=== PATIENT | female | born 1960 | race Caucasian/White ===

== ENCOUNTER 2018-02-05 13:27 | Inpatient (IN) | payer BC ==
[~2018-02-05] VITALS: Ht 162.6 cm; Wt 71.7 kg
[2018-02-05 13:53] VITALS: BP 141/94
--- NOTE | 2018-02-05 13:57 | NUR ---
ADMISSION: PATIENT HERE FOR MEDICAL CLEARANCE FOR BEHAVIORAL HEALTH. PATIENT TOLD THIS NURSE DURING TRIAGE THAT SHE DID HAVE AN ACTIVE SUICIDE PLAN YESTERDAY, BUT THAT SHE REALLY FELT BETTER TODAY. AT BEDSIDE AND AGREED THAT SHE WAS BETTER TODAY. PATIENT STATES SHE HAS A LIFE LONG HISTORY OF DEPRESSION AND IT IS USUALLY CONTROLLED, BUT OVER THE LAST YEAR IT HAS BACAME INCREASINLY WORSE AND THEN THE LAST 2-3 DAYS UNCONTROLLABLE.
--- NOTE | 2018-02-05 14:06 | NUR ---
[facility]: SPOKE WITH NURSE ABOUT PATIENTS ARRIVAL, SHE STATED "SHE IS ACCEPTED, PENDING MEDICAL CLEARANCE, HER DOCTOR HAS ALREADY TALKED TO DR. MURPHY".
--- NOTE | 2018-02-05 14:14 | ER.PDOC ---
General Chief Complaint: Medical Clearance Stated Complaint: MEDICAL CLEARANCE Time seen by MD: 13:35 Source: patient, family Exam Limitations: no limitations History of Present Illness Initial Comments pt has hx of fibromyalgia, htn, and being treated for depression x1yr by pcp and counselor who on awoke w/ suicidal ideation and about a month ago, cut herself in a suicide attempt but didn't seek medical attention. Pt states she would cut her radial or bracheal artery, doesn't get much sleep, feels depressed and has no family or prior attempts other than above hx of suicide attempts. Pt denies illness or hallucinations and has had anxiety w/ increased HR before. Timing/Duration: constant, other Intent: Suicide Severity: moderate Associated Symptoms: Depressed, Suicidal Thoughts Mechanism: Incision Substance Ingested: none Rescue Factor: told Prior symptoms/Treatment: Similar symptoms previous, Recenly Seen, Treated by Doctor Allergies: Coded Allergies: Sulfa (Sulfonamide Antibiotics) (Verified Allergy, Severe, Swelling, ) erythromycin base (Verified Allergy, Severe, Swelling, 02/05/18) morphine (Verified Allergy, Severe, Swelling, 02/05/18) Past Medical History Medical History: high cholesterol, hypertension, other (fibromyalgia, ) Surgical History: appendectomy, cholecystectomy LMP (females 10-50): postmenopause Social History Smoking: greater than 1 pack/day Alcohol Use: heavy (5-6 beers per day) Drug Use: none Reviewed Nursing Reviewed: Vital Signs, Abn. Noted, Nursing Assessment Review of Systems Constitutional: no symptoms reported; denies fever, denies malaise, denies weakness EENTM: no symptoms reported Respiratory: no symptoms reported; denies cough, denies orthopnea, denies shortness of breath, denies stridor Cardiovascular: no symptoms reported; denies chest pain, denies edema, denies syncope Gastrointestinal: no symptoms reported; denies abdominal pain, denies diarrhea , denies nausea, denies vomiting Genitourinary: no symptoms reported; denies dysuria, denies frequency, denies hematuria Musculoskeletal: no symptoms reported Skin: no symptoms reported Psychiatric/Neurological: see HPI; denies headache, denies paresthesia, denies weakness All Other Systems: Reviewed and Negative Physical Exam General Appearance: No acute distress, Alert EENT: No nystagmus, PERRLA, EOM's intact, NML ENT inspection, Pharynx nml, NML gag reflex Neck: Non-Tender, Full Range of Motion, Supple, Normal Inspection Respiratory: chest non-tender, lungs clear, normal breath sounds, no respiratory distress, no accessory muscle use Cardiovascular: Normal Peripheral Pulses, Regular Rate, Rhythm, No Edema, No Gallop, No JVD, No Murmur Gastrointestinal: Normal Bowel Sounds, No Organomegaly, No Pulsatile Mass, Non Tender, Soft Extremities: Non-Tender, Normal Range of Motion, No Evidence of Trauma, No Edema Neurological/Psychiatric: Alert, Calm, associate media planner II-XII NML as Tested, Oriented x 3, Depressed Affect, Flat Appearance/Memory/Insight: Appropriate Appearance, Appropriate Insight, Neat, No Memory Impairment Behavior/Eye Contact/Speech: Cooperative, Good Eye Contact, Normal Speech Thoughts/Hallucinations: Normal Thought Pattern, No Apparent Hallucination Skin: Normal Color, Warm/Dry Results/Orders Results/Orders Laboratory Tests Test 02/05/18 14:19 02/05/18 14:20 Urine Collection Type CCMS Urine Color YELLOW (YELLOW) Urine Appearance CLOUDY (CLEAR) Urine Bilirubin NEGATIVE MG/DL (NEGATIVE) Urine Ketones NEGATIVE (NEGATIVE) Urine Specific [place] 1.010 (1.005-1.035) Urine pH 5 (5.0-6.0) Urine Protein NEGATIVE (NEGATIVE) Urine Urobilinogen NORMAL (NEGATIVE) Urine Nitrate NEGATIVE (NEGATIVE) Urine Leukocyte Esterase NEGATIVE (NEGATIVE) Urine Blood 10 TR (NEGATIVE) Urine RBC 0-2 RBC/HPF (NONE SEEN) Urine WBC 5-10 WBC/HPF (0-2) Urine Squamous Epithelial Cells FEW #/HPF (FEW) Urine Bacteria MODERATE (NONE SEEN) Urine Other FEW CLUE CELLS #/HPF Urine Glucose NORMAL (NEGATIVE) Urine Opiates, Qualitative NEGATIVE ng/mL (CUT-OFF:300) Urine Methadone, Qualitative NEGATIVE ng/mL (CUT-OFF:300) Urine Amphetamine Qualitative NEGATIVE ng/mL (CUTOFF:1000) Urine Barbiturates, Qualitative NEGATIVE ng/mL (CUT-OFF:200) Urine Phencyclidine Screen NEGATIVE ng/mL (CUT-OFF:25) Urine MDMA (Ecstasy), Qualitative POSITIVE ng/mL (CUT-OFF:300) Urine Benzodiazepines Screen NEGATIVE ng/mL (CUT-OFF:200) Urine Cocaine Qualitative NEGATIVE ng/mL (CUT-OFF:300) Ur Tetrahydrocannabinol (THC) Scrn NEGATIVE ng/mL (CUT-OFF:50) White Blood Count 7.5 10^3/uL (4.5-11.0) Red Blood Count 4.56 10^6/uL (4.00-5.20) Hemoglobin 15.3 g/dL (12.0-15.0) Hematocrit 44.6 % (36.0-46.0) Mean Corpuscular Volume 97.8 fL (78-100) Mean Corpuscular Hemoglobin 33.6 pg (26-34) Mean Corpuscular Hemoglobin Concent 34.3 g/dL (33-37) Red Cell Distribution Width 13.1 % (11.5-14.5) Platelet Count 245 10^3/uL (150-400) Mean Platelet Volume 10.1 fL (7.8-11.0) Neutrophils (%) (Auto) 46.0 % (41.0-85.0) Lymphocytes (%) (Auto) 34.6 % (24.0-44.0) Monocytes (%) (Auto) 10.3 % (5.0-12.0) Neutrophils # (Auto) 3.4 10^3/uL (1.8-7.7) Lymphocytes # (Auto) 2.6 10^3/uL (1.0-4.8) Monocytes # (Auto) 0.8 10^3/uL (0.3-0.8) Absolute Immature Granulocyte (auto 0.02 10^3 u/L (0-2) Eosinophils % 7.7 % (0.0-5.0) Basophils % 1.1 % (0.0-0.2) Basophils # 0.1 10^3/uL (0.0-0.1) Eosinophil Count 0.6 10^3/uL (0.0-0.2) Prothrombin Time 10.6 SEC (9.8-11.9) Prothrombin Time INR (Non-Therap) 1.1 Activated Partial Thromboplast Time 25.5 SEC (24.67-30.72) Sodium Level 142 mmol/L (132-145) Potassium Level 3.5 mmol/L (3.6-5.2) Chloride Level 108.0 mmol/L (96-109) Carbon Dioxide Level 19.0 mmol/L (20.0-32) Anion Gap 18.5 Blood Urea Nitrogen 6 mg/dL (7-18) Creatinine 0.76 mg/dL (0.59-1.40) Estimated GFR () 95.6 (>/=60) BUN/Creatinine Ratio 7.0 Glucose Level 144 mg/dL (70-110) Calcium Level 8.8 mg/dL (8.4-10.5) Total Bilirubin 0.7 mg/dL (0.2-1.0) Aspartate Amino Transf (AST/SGOT) 18 U/L (0-35) Alanine Aminotransferase (ALT/SGPT) 25 U/L (12-78) Alkaline Phosphatase 68 U/L (50-136) Total Protein 7.5 g/dL (6.4-8.2) Albumin 4.0 g/dL (3.4-5.0) Globulin 3.5 Thyroid Stimulating Hormone (TSH) 1.646 mIU/mL (0.358-3.740) Percent Immature Gran (Cell Imm) 0.30 % (0.00-0.50) Progress Progress pt wants [facility] admit, will screen for medical abn and admit Some labs pending on admit. Accepted by DR. Aguilar Consult/PCP Time Consult/PCP Called: 15:00 Consult/PCP: maximo Reason/Comments: cade [facility]ireenix Departure Time of Disposition: 15:03 Disposition: 09 ADMITTED INPATIENT Impression: Primary Impression: Suicidal ideation Additional Impression: Depression (emotion) Condition: Stable Referrals: KECIA MILLAN (PCP) PRIMARY CARE PROVIDER Duration or Time Spent with Pa: 30 JODEE REYNOSO MD Feb 05, 2018 14:14
[2018-02-05 14:23] LABS: BILIRUBIN,URINE NEGATIVE (NEGATIVE); UROBILINOGEN,URINE NORMAL (NEGATIVE)
[2018-02-05 14:26] LABS: BASOPHIL # 0.1 10^3/uL (0.0-0.1); BASOPHIL % 1.1 % (0.0-0.2); EOSINOPHIL # 0.6 10^3/uL (0.0-0.2); EOSINOPHIL % 7.7 % (0.0-5.0); HEMOGLOBIN 15.3 g/dL (12.0-15.0); LYMPHOCYTES # 2.6 10^3/uL (1.0-4.8); LYMPHOCYTES % 34.6 % (24.0-44.0); MEAN CELL HGB 33.6 pg (26-34); MEAN CELL HGB CONCENTRATION 34.3 g/dL (33-37); MEAN CORP VOLUME 97.8 fL (78-100); MEAN PLATELET VOLUME 10.1 fL (7.8-11.0); MONOCYTES # 0.8 10^3/uL (0.3-0.8); MONOCYTES % 10.3 % (5.0-12.0); NEUTROPHIL # 3.4 10^3/uL (1.8-7.7); RED CELL DISTRIBUTION WIDTH 13.1 % (11.5-14.5); WHITE BLOOD CELL 7.5 10^3/uL (4.5-11.0)
[2018-02-05 14:30] LABS: UA COLOR YELLOW (YELLOW)
[2018-02-05 14:31] LABS: APPEARANCE,URINE CLOUDY (CLEAR)
--- NOTE | 2018-02-05 14:34 | PCM.EKG ---
[facility] Test Date: 2018-02-05 Test Time: 14:36:59 Pat Name: EZEQUIEL MUNGUIA Department: Room: Gender: F Supervisor Files: : [id number] Requested By: JODEE REYNOSO Order Number: [id number] Reading MD: Jodee Reynoso Measurements Intervals [place] Rate: 106 P: 56 VA: 148 QRS: 21 QRSD: 82 T: 57 QT: 350 QTc: 464 Interpretive Statements Sinus tachycardia Otherwise normal ECG No previous ECG available for comparison Electronically Signed On 02-05-2018 18:48:30 CDT by Jodee Reynoso Please click the below link to view image of tracing.
[2018-02-05 14:58] LABS: CALCIUM 8.8 mg/dL (8.4-10.5)
[2018-02-05 16:00] VITALS: BP 133/93
--- NOTE | 2018-02-05 16:00 | NUR ---
ARRIVAL: PT. ARRIVED ON UNIT VIA WHEELCHAIR ACCOMPANIED BY AND STAFF. PT. IS ALERT AND ORIENTED X 3.. PT. IS TEARFUL. PT. DX. IS MAJOR DEPRESSION SEVERE WITH SUICIDAL IDEATION. PT.DISCHARGE PLAN IS TO DISCHARGE, HOME.DR. ATKINS AND DR. CONNOR NOTIFIED OF PT ARRIVAL ON UNIT. PT. IS VOLUNTARY. Addendum: 02/05/18 at 1951 by Estefanía Sheikh RN RN PT. DENIES ANY S/I AT THIS TIME
[2018-02-05] MEDS ORDERED: ATIVAN ONE (16:10)
[2018-02-05] MEDS ORDERED: ATIVAN PO STA (16:12)
[2018-02-05] MEDS ORDERED: BUPR150T13 PO (16:57)
[2018-02-05] MEDS ORDERED: DULO60CA7 PO (16:57)
[2018-02-05] MEDS ORDERED: CETI10TA18 PO (16:57)
[2018-02-05] MEDS ORDERED: LOSA50TA6 PO (16:57)
[2018-02-05] MEDS ORDERED: ASPI-484 PO (16:57)
[2018-02-05] MEDS ORDERED: OMEG1CAP2 PO (16:57)
[2018-02-05] MEDS ORDERED: CHOL500016 PO (16:57)
[2018-02-05] MEDS ORDERED: BLAC540C4 PO (16:57)
[2018-02-05] MEDS ORDERED: CARV6.25 PO (16:57)
[2018-02-05] MEDS ORDERED: MILK175C2 PO (16:57)
[2018-02-05] MEDS ORDERED: DEXL60CA2 PO (16:57)
[2018-02-05] MEDS ORDERED: TRAM50TA PO (16:57)
--- NOTE | 2018-02-05 17:00 | NUR ---
VSEE: PT. SEEN BY DR. MILLY PHELAN. PT. IS VOLUNTARY. PT IS TEARFUL AND RATES HER DEPRESSION A 10.
[2018-02-05] MEDS ORDERED: KLONOPIN PO PRN (18:30)
[2018-02-05 19:20] VITALS: BP 102/61
[2018-02-05] MEDS: KLONOPIN PO SCH (20:33)
[2018-02-05] MEDS ORDERED: ATIVAN PO SCH (21:00)
--- NOTE | 2018-02-06 06:09 | NUR ---
PIRP P-ALTERATION IN MOOD AND DTS I-PROVIDE MEDICATION ORDERED,Q 15 MIN. MONITORING,PROVIDE 1:1 INTERVENTION ALLOWING PT. TO EXPRESS THOUGHTS AND FEELINGS. R- PT. DECLINED TO ATTEND AND STAYED IN HER BED. DECLINED SNACKS. RATED DEPRESSION AND ANXIETY 10. DENIES SI TONIGHT BUT STATES SHE HAS HAD SI BEFORE COMING HERE. ORIENTED TIMES THREE. TOOK MEDICATION ORDERED. PT. HAS RESTED IN BED WITH EYES CLOSED FOR 7.75 HOURS. P- WILL CONTINUE WITH CURRENT TX. PLAN.
[2018-02-06 08:00] VITALS: BP 153/95
--- NOTE | 2018-02-06 08:00 | NUR ---
BEHAVIOR: PT. REFUSES TO GET UP FOR BREAKFAST. PT. DOES NOT WANT TO GO TO DAY ROOM. TOLD PT. WOULD BRING HER BREAKFAST TO HER ROOM AND SHE COULD GET UP FOR LUNCH. PT. AGREED. PT. DENIES ANY SUICIDAL IDEATION AT THIS TIME. PT. IS CALM AND COOPERATIVE.
--- NOTE | 2018-02-06 08:09 | DIREP ---
PROCEDURE:CHEST 1 VIEW COMPARISON:[facility], CR, XRAY CHEST SINGLE VW, 04/14/2017, 09:55 AM. INDICATIONS:new admit FINDINGS: LUNGS/PLEURA:No significant pulmonary parenchymal abnormalities. No effusions. Azygos fissure in the right apex. The lungs are clear. No pneumonia, heart failure or effusions are seen. The previously noted nodule in the right costophrenic angle is not visualized on the current examination. VASCULATURE:Normal. Unremarkable pulmonary vasculature. CARDIAC:Normal. No cardiac silhouette abnormality or cardiomegaly. MEDIASTINUM:Normal. No visible mass or adenopathy. BONES:Normal. No fracture or visible bony lesion. OTHER:Negative. CONCLUSION:No change, no active disease. Dictated by: Jett Martinez MD on 02/06/2018 at 08:06 AM
[2018-02-06 08:22] VITALS: BP 153/95
[2018-02-06] MEDS: KLONOPIN PO SCH ×2 (08:31→22:06)
[2018-02-06] MEDS: EFFEXOR XR PO SCH (08:31)
[2018-02-06] MEDS: CYMBALTA PO SCH (08:31)
--- NOTE | 2018-02-06 10:00 | NUR ---
BEHAVIOR: PT. HAS BEEN SLEEPING ALL MORNING. PT. HAS TAKEN HER MEDICATION ORDERED. PT. REFUSES TO COME TO GROUP OR SNACK. PT. DENIES ANY SUICIDAL IDEATION. PT. IS CALM.
--- NOTE | 2018-02-06 10:30 | NUR ---
DR. CONNOR: T/C TO DR. CONNOR TO LET HIM KNOW THAT PT. IS C/O PAIN AND NEEDS MEDS ORDERED.. NO ANSWER AND MESSAGE LEFT.
--- NOTE | 2018-02-06 12:00 | NUR ---
BEHAVIOR: PT. CAME TO THE DAY ROOM FOR LUNCH. SHE DRANK HER TEA AND WATCHED SOME TV THEN WENT BACK TO HER ROOM. PT. STATED THAT SHE WAS NOT HUNGARY. PT. STATED SHE WAS HERE FOR MED ADJUSTMENT AND NOTHING ELSE. PT. PLANS TO BE OUT OF HERE BEFORE THURSDAY. PT. SITTING UP IN BED READING A MAGAZINE. PT. DENIES ANY SUICIDAL IDEATION. SHE STATES THAT SHE HAS DEPRESSION AND ANXIETY. SHE RATES THEM BOTH A 10.
--- NOTE | 2018-02-06 12:00 | NUR ---
HOSPITALIST: T/C TO MEDICAL FLOOR FOR HOSPITALIST. TALKED TO ALIVIA AND SHE SAID DR. CARSON WAS TURRET LATHE SET UP OPERATOR AND THAT HE WAS MAKING ROUNDS. SHE SAID SHE HAD THE PT. ON HIS LIST TO COME AND SEE.
--- NOTE | 2018-02-06 13:19 | NUR ---
T/C: T/C TO DR. ATKINS. MESSAGE LEFT TO CALL UNIT.
--- NOTE | 2018-02-06 13:51 | NUR ---
DR. ATKINS: DR. ATKINS CALLED AND REPORT WAS GIVEN TO HIM ABOUT PT. NOT EATING, NOT COMING TO GROUPS AND THAT SHE WAS GOING TO BE GONE BEFORE THURSDAY. NO NEW ORDERS RECEIVED CONTINUE TO MONITOR THE PT. Q 15 MINUTE CHECK DONE..
--- NOTE | 2018-02-06 14:40 | NUR ---
PIRP: P: DTS, ALTERATION IN MOOD I: MONITOR PT. Q 15 MINUTES, PROVIDE SAFE AND SUPPORTIVE ENVIRONMENT, OBSERVE AND REPORT CHANGES IN UNUSUAL BEHAVIOR, ENCOURAGE DAILY GROUP ATTENDANCE AND PARTICIPATION, PROVIDE MEDICATION ORDERED. PROVIDE 1:1 ALLOWING PT. TO EXPRESS THOUGHTS AND FEELINGS, MONITOR AND RECORD EACH MEAL. R: PT. IS CHECKED ON Q 15 MINUTES, PT HAS A SAFE AND SUPPORTIVE ENVIRONMENT. PT. HAS BEEN SLEEPING A LOT. PT. HAS 1:1 AND HAS EXPRESSED FEELING THAT SHE IS ONLY HERE FOR MED ADJUSTMENT AND NOTHING ELSE. SHE ATE 30% OF BREAKFAST AND 0% OF LUNCH. PT. REFUSES TO COME TO DAY ROOM AND REFUSES TO COME TO GROUP. PT. DENIES AND SUICIDAL IDEATION. RATES HER DEPRESSION A 10 AND ANXIETY A 10. P: CONTINUE CURRENT TX PLAN
--- NOTE | 2018-02-06 15:10 | NUR ---
HOSPITALIST: CALLED MEDICAL AND DR. CARSON IS STILL SEEING PTS. ALIVIA SAID SHE WOULD REMIND HIM TO COME DOWN HERE WHEN HE WAS FINISHED.
[2018-02-06 15:15] VITALS: BP 149/97
--- NOTE | 2018-02-06 15:24 | NUR ---
MMSE: NO IMPAIRMENT Addendum: 02/06/18 at 1525 by Reanna Workman LMSW SW Amended: Links added.
--- NOTE | 2018-02-06 15:28 | NUR ---
GMAS: SEVERE DEPRESSION Addendum: 02/06/18 at 1528 by Reanna Workman LMSW SW Amended: Links added.
--- NOTE | 2018-02-06 16:05 | NUR ---
HOSPITALIST: T/C TO MEDICAL TO CHECK IF DR. CARSON WAS STILL THERE. ALIVIA STATED HE LEFT 10 [address] ON HIS WAY TO THE BEHAVIORAL UNIT.
--- NOTE | 2018-02-06 16:06 | NUR ---
PT PRESENTED TO THE ER FOR MEDICAL CLEARANCE DUE TO SUICIDAL THOUGHTS AND SEVERE DEPRESSION. PT CURRENTLY LIVES IN [place] WITH SPOUSE AND PLANS TO RETURN HOME UPON DISCHARGE. PT CURRENTLY Addendum: 02/06/18 at 1613 by DEEPTHI Marina Amended: Links added. Addendum: 02/06/18 at 1613 by DEEPTHI Marina PLEASE SEE ABOVE NOTE.
--- NOTE | 2018-02-06 16:10 | NUR ---
PT PRESENTED TO THE ER WITH SPOUSE DUE TO SUICIDAL IDEATIONS AND SEVERE DEPRESSION. PT VOLUNTARILY ADMITTED SELF INTO THE [facility] FOR PSYCHIATRIC NEEDS. PT PLANS TO RETURN HOME WITH SPOUSE IN [place] UPON DISCHARGE. PT CURRENTLY SEE'S A THERAPIST IN [place]. Addendum: 02/06/18 at 1613 by DEEPTHI Marina Amended: Links added.
--- NOTE | 2018-02-06 16:15 | NUR ---
DR. CARSON: T/C TO ABOUT NEW PT. INFORMED HIM THAT MEDS NEEDED TO BE ORDERED. DR. CARSON WANTED TO KNOW WHAT SHE WAS ON AND GAVE AN ORDER TO CONTINUE THOSE MEDS AND HE WOULD BE UP LATER TO SEE THE PT..
[2018-02-06] MEDS ORDERED: ZYRTEC PO SCH (16:30)
[2018-02-06] MEDS ORDERED: VITAMIN D PO SCH (16:30)
[2018-02-06] MEDS ORDERED: VITAMIN D ONE (16:31)
[2018-02-06] MEDS: COREG PO SCH ×2 (16:35→22:05)
[2018-02-06] MEDS: ULTRAM PO SCH ×2 (16:36→22:13)
[2018-02-06 20:03] VITALS: BP 139/85
--- NOTE | 2018-02-06 21:41 | PSYCH ---
DATE OF SERVICE: 02/05/2018 TIME: 03:00-04:00 a.m. CHIEF COMPLAINT: Severe depression and panic with suicidal intent with a plan. HISTORY OF PRESENT ILLNESS: This patient is a female admitted after comprehensive medical clearance to the Behavioral Health Care Unit. The patient lives in [place] and was under the care of Dr. Pompa, who contacted the disposition about the patient and the severity of her depression. The patient reports severely depressed mood, ongoing for one to two years, increasing greatly within the last 6 months and currently extremely severe for a week or two. On a scale of 1-10 with 10 being the worst, depression, and manageable. She reports ____ as 10. No psychiatric hospitalization previously. The patient's mood depressed, disturbed sleep, appetite, energy, concentration, feelings of hopelessness, helplessness, worthlessness. Positive anhedonia, positive suicidal ideation with intent via cutting her wrists. She has been on medications including Celexa, Cymbalta, Wellbutrin, all of which have been ineffective. She has been in individual therapy for months, which has also been ineffective. The patient representing a risk or danger to herself and therefore admitted to the hospital. She is voluntary at this point and we will encourage her to stay in the hospital while she was having any suicidal thoughts. CURRENT MEDICATIONS: Include Cymbalta 60 mg a day and Wellbutrin 150 mg twice a day for depression. Both of these medications have been in place for months with no response. The patient also has anxiety or panic symptoms, severe interfering with ability to function. PAST PSYCHIATRIC HISTORY: Positive for major depressive disorder and panic disorder. PAST MEDICAL HISTORY: 1. Appendectomy. 2. Obstructive sleep apnea. 3. Hypertension. 4. Gastroesophageal reflux disease. 5. Hyperlipidemia. 6. Fibromyalgia. CURRENT MEDICATIONS: Include Wellbutrin, Cymbalta, losartan, beta von and occasional tramadol. ALLERGIES: INCLUDE MORPHINE, ERYTHROMYCIN, AND SULFA. FAMILY PSYCHIATRIC HISTORY: Positive for bipolar disorder in a daughter currently being treated with valproic acid. SOCIAL HISTORY: The patient lives in [place], 17 years. 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 She is educated with a college education. Tobacco, one half pack per day. Beer, which is being used, has been increasing in the evening and she has been concerned about her consumption of alcohol, although she has never had a DUI public intoxication withdrawal or any other symptoms associated with alcohol use disorder. OBJECTIVE: VITAL SIGNS: Blood pressure 133/93, pulse 105, respirations 18, oxygen saturation 98%, temperature 98.2. REVIEW OF SYSTEMS: HEENT: Normal. RESPIRATORY: No shortness of breath, coughing, or wheezing. CARDIOVASCULAR: No chest pain or palpitations. GASTROINTESTINAL: No nausea, vomiting, diarrhea or constipation. GENITOURINARY: No difficulty with urination. EXTREMITIES: No swelling or edema. MUSCULOSKELETAL: No muscle pain currently. NEUROLOGIC: Normal. ENDOCRINE: Normal. MENTAL STATUS EXAMINATION: Reveals a profoundly depressed, female with decreased psychomotor activity, tearful throughout. Concentration and memory intact. Speech and language are normal. Orientation is full. Intelligence is average. Mood assessed as depressed. Affect constricted. Insight and judgment fair. Thought logical and goal directed. Positive suicidal ideation. DIAGNOSES: AXIS I: 1: Major depressive disorder, recurrent. 2. Panic disorder. AXIS II: Deferred. AXIS III: Refer to past medical history. TREATMENT PLAN: 1. This patient will be admitted to the Behavioral Health Care Unit and being observed closely. Again, she is voluntary in the hospital and she is being evaluated consistently or repeatedly for any suicidal thoughts. 2. Her medications will be changed. Cymbalta will be decreased and discontinued. Wellbutrin will be discontinued. She will be placed on Effexor XR 75 mg in the mornings and Klonopin 0.5 mg twice a day. 3. She will participate in all groups, therapies and activities. 4. She will be discharged back to home with outpatient care through the [facility] psychiatric clinic with Dr. Niño as soon as her suicidal thoughts resolved completely. Jhonatan Niño MD DR: HELENA/francisco JOB# [id number]
[2018-02-06] MEDS: COZAAR PO SCH (22:06)
[2018-02-06] MEDS: LOVAZA PO SCH (22:06)
--- NOTE | 2018-02-07 05:59 | NUR ---
pirp p- alteration in mood and dts i- provide medication as ordered,provide safe and supportive environment and q 15 min. monitoring.provide 1:1 intervention allowing pt. to express thoughts and feelings. R- PT. DECLINED TO ATTEND GROUP BUT DRANK COFFEE FOR SNACKS. PT. WITHDRAWN TO HER ROOM. PT. LAID IN BED AND LOOKED AT BOOKS. PT. STATED SHE TALKED WITH QUILL LAYER TODAY AND SHE FEELS LESS DEPRESSED SINCE TALKING WITH HER. TOOK MEDICATION ORDERED. PT. RATED DEPRESSION 8 AND ANXIETY 5. ORIENTED TIMES THREE. QUIET BUT PLEASANT. P- WILL CONTINUE WITH CURRENT TX. PLAN.
[2018-02-07 08:10] VITALS: BP 114/78
[2018-02-07] MEDS: ASPIRIN EC PO SCH (08:18)
[2018-02-07] MEDS: CYMBALTA PO SCH (08:19)
[2018-02-07] MEDS: COREG PO SCH ×2 (08:19→20:33)
[2018-02-07] MEDS: ULTRAM PO SCH ×2 (08:20→20:34)
[2018-02-07] MEDS: EFFEXOR XR PO SCH (08:20)
[2018-02-07] MEDS: KLONOPIN PO SCH ×2 (08:21→20:34)
[2018-02-07] MEDS: CLARITIN PO SCH (08:24)
[2018-02-07] MEDS: PROTONIX PO SCH (08:40)
[2018-02-07] MEDS: VITAMIN D PO SCH (08:41)
[2018-02-07] MEDS ORDERED: COZAAR PO SCH (09:00)
[2018-02-07] MEDS ORDERED: COZAAR PO ONE (09:00)
--- NOTE | 2018-02-07 12:55 | NUR ---
Urticaria Dr. Niño notified of pt reporting "itchiness all over." No rash, no swelling noted to entire body surface. Pt states, "It might just be one of those things that when you scratch you can't stop." Received orders for PRN benadryl, see EMAR.
[2018-02-07] MEDS ORDERED: BENADRYL PO PRN (13:00)
[2018-02-07] MEDS ORDERED: BENADRYL PO ONE (13:03)
--- NOTE | 2018-02-07 16:31 | NUR ---
PIRP P: Alteration in mood I: q15 min monitoring, monitor for changes in usual behavior, assess reasons for depression and anxiety, teach coping skills r/t depression, reinforce unit rules, teach importance of participation in own self-care, provide 1:1 to encourage expression of feelings, provide safe and supportive environment, provide task-oriented activities, encourage social interaction R: Pt has had pleasant affect throughout shift, withdraws to room. Comes out for meal times, but has not participated in group activities. Rates depression @ 8 on 0-10 scale, denies anxiety and suicidal ideation. States, "Today is the first day I haven't woken up crying. I do feel better, but I'm still deja sleepy and groggy, I guess because of the medicine." Pt did report new onset of urticaria, which has been relieved with admin of PRN benadryl. Pt cooperative with ADLs, stated, "I even put on some blush and lipstick. I'm making some progress." P: Pt reports she is going to "take one step at a time."
--- NOTE | 2018-02-07 16:58 | CNH ---
DATE OF CONSULTATION: 02/06/2018 REASON FOR CONSULTATION: Concurrent medical. The patient is being admitted to Psychiatry in the [facility]. CONSULTATION NOTE IS FOLLOWS: The patient is a 57-year-old female who is admitted to the [facility] voluntarily for worsening depression and suicide ideations. She voices no complaints to me other than she wanted to make sure that she was on her home medications for her blood pressure and heart rate. She denies any chest pain to me. No shortness of breath at this point. No abdominal pains. PAST MEDICAL HISTORY: Significant for tachycardia, hypertension, depression, fibromyalgia. PAST SURGICAL HISTORY: Includes cholecystectomy, appendectomy and she has had RIVET TESTER surgery with her ovaries and fallopian tubes. SOCIAL HISTORY: She does have a history of smoking. She does admit to alcohol use, no drug use. FAMILY HISTORY: Asked and noncontributory for this admission. ALLERGIES: SULFA, ERYTHROMYCIN and MORPHINE. MEDICATIONS: She is on include losartan 100 mg at night, Coreg 6.25 mg twice a day, baby aspirin a day, vitamin D3, Zyrtec, Dexilant 60 mg at night, tramadol twice a day as needed, duloxetine. PHYSICAL EXAMINATION: VITAL SIGNS: Today, latest vital signs, temperature of 98.1, pulse rate 86, respirations 18, blood pressure 139/85, O2 sats of 97% on room air. My physical exam is as follows: GENERAL: She is in no acute distress. She is awake, she is alert and oriented x 4. Oropharynx is clear. No maxillary sinus tenderness. NECK: Supple, no JVD, no bruits. HEART: S1, S2 audible. Heart rate on my exam was about 84. PMI was normal. LUNGS: Clear bilaterally. ABDOMEN: Good bowel sounds, soft abdomen, no rebound or guarding. EXTREMITIES: No pitting edema. SKIN: No rashes, no petechia, no purpura, 2+ distal pulses are noted. NEUROLOGIC: Cranial nerves 2-12 are grossly intact. She has good motor strength bilaterally x 4 extremities. Sensation is intact. DTRs are normal x 4 extremities. Gait is normal. LABORATORY DATA: Labs were drawn. CBC had a hemoglobin 15.3, otherwise normal. Coags were normal. Chemistry panel showed potassium 2.5, bicarbonate is 19, glucose of 144, triglycerides were 381. Total cholesterol 254, LDL of 230. UA showed some moderate bacteria, 5-10 wbc's. Urine culture was mixed jean pierre. ASSESSMENT: We have this female with suicide ideations with depression with underlying hypertension, tachycardia, gastroesophageal reflux disease and fibromyalgia. I will continue home medications as is and follow along with Psychiatry. Ary Flor MD DR: LUIGI/francisco JOB# [id number]
[2018-02-07 19:28] VITALS: BP 120/87
[2018-02-07] MEDS: COZAAR PO SCH (20:34)
[2018-02-07] MEDS: LOVAZA PO SCH (20:36)
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
[2018-02-08 08:02] VITALS: BP_SYST 136; BP_SYST 140; BP_DIAS 57; BP_DIAS 87
[2018-02-08] MEDS: CLARITIN PO SCH (08:41)
[2018-02-08] MEDS: VITAMIN D PO SCH (08:41)
[2018-02-08] MEDS: KLONOPIN PO SCH ×2 (08:43→20:18)
[2018-02-08] MEDS: ULTRAM PO SCH ×2 (08:44→20:16)
[2018-02-08] MEDS: ASPIRIN EC PO SCH (08:44)
[2018-02-08] MEDS: CYMBALTA PO SCH (08:44)
[2018-02-08] MEDS: PROTONIX PO SCH (08:44)
[2018-02-08] MEDS: COREG PO SCH ×2 (08:45→20:17)
[2018-02-08] MEDS: EFFEXOR XR PO SCH (08:49)
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
[2018-02-08 19:49] VITALS: BP 127/85
[2018-02-08] MEDS: COZAAR PO SCH (20:18)
[2018-02-08] MEDS: LOVAZA PO SCH (20:18)
--- NOTE | 2018-02-09 05:26 | NUR ---
PIRP P- ALTERATION IN MOOD AND SI I- PROVIDE MEDICATION ORDERED,Q 15 MIN. MONITORING,PROVIDE SAFE AND SUPPORTIVE ENVIRONMENT. PROVIDE 1:1 INTERVENTION ALLOWING PT. TO EXPRESS THOUGHTS AND FEELINGS. R- PT. ORIENTED TIMES THREE AND RATED DEPRESSION 5 AND ANXIETY. DENIES SI TONIGHT. SHE STATED SHE FEELS THE [place]ON[place] HAS BEEN HELPING HER. NO TEARFULNESS NOTED TONIGHT. ENCOURAGED PT. TO ATTEND GROUP AND HAVE A SNACK BUT SHE DECLINED AND STAYED IN BED. QUIET BUT RESPONDS TO APPROACH.TOOK MEDICATION ORDERED. PT. RECEIVED BENADRYL 25 MG PO PRN AT 2153. IN BED RESTING WITH EYES CLOSED AT THIS TIME. P- WILL CONTINUE WITH CURRENT TX. PLAN.
[2018-02-09 07:59] VITALS: BP 134/80
[2018-02-09] MEDS: ASPIRIN EC PO SCH (08:24)
[2018-02-09] MEDS: PROTONIX PO SCH (08:24)
[2018-02-09] MEDS: VITAMIN D PO SCH (08:24)
[2018-02-09] MEDS: COREG PO SCH (08:24)
[2018-02-09] MEDS: CLARITIN PO SCH (08:24)
[2018-02-09] MEDS: EFFEXOR XR PO SCH (08:25)
[2018-02-09] MEDS: ULTRAM PO SCH (08:25)
[2018-02-09] MEDS: KLONOPIN PO SCH (08:25)
[2018-02-09] MEDS ORDERED: CLON0.5T3 PO (12:17)
[2018-02-09] MEDS ORDERED: VENL75CA PO (12:17)
[2018-02-09] MEDS ORDERED: DIPH25CA57 PO (13:03)
[2018-02-09 14:37] VITALS: BP 147/80
--- NOTE | 2018-02-09 15:05 | NUR ---
DISCHARGE: PT. DISCHARGED TO HOME. PT. ALERT, ORIENTED X 3. PT DENIES ANY SUICIDAL IDEATION. PT. RATED DEPRESSION A 3 AND ANXIETY 2. PT, STATES FEELS MUCH BETTER AND CALMER. MEDS CALLED IN TO [facility] AND PAPERS FAXED TO FAMILY AND DR. ATKINS. PT. SISTER HERE TO PICK HER UP. PT. AMB. TO CAR ESCORTED BY SISTER AND INFECTION CONTROL MANAGER.
--- NOTE | 2018-02-09 15:08 | PNH ---
DATE: 02/08/2018 PSYCHIATRIC PROGRESS NOTE TIME: 3:20. HISTORY OF PRESENT ILLNESS: The patient is a very nice female presenting with a diagnosis of major depressive disorder, severe ongoing for approximately 1-2 years, increasing in over a period of 6 months with tremendous increase and severity of depressive symptoms in days or weeks prior to admission. The patient was suicidal ideation and intent to cutting her wrists, positive anhedonia. She had been on medications on an outpatient basis to include Celexa, Cymbalta, Wellbutrin, all of which were not effective. She also had been in individual therapy since July, which may have been helpful. At this point, the patient is showing decrease in depressive symptoms, decreased tearfulness, decreased vegetative symptoms, no anhedonia. She continues to deny suicidal ideation or intent and peers to show good motivation and desire for improvement. She has been placed on medication. All the other previous medications were discontinued and she was placed on Effexor 75 mg with Klonopin 0.5 mg twice a day for panic and anxiety. Again, she is showing improvement and the patient is voluntary in the hospital and requesting discharge; therefore, with no suicidal ideation or intent and continued improvement, she will be discharged tomorrow. The patient's prognosis is good. She will receive treatment on an outpatient basis through the [facility] at [facility] with Dr. Niño and ongoing individual therapy, which she is receiving since July. OBJECTIVE: VITAL SIGNS: Blood pressure 140/87, pulse 78, respirations 18, temperature 98, oxygen saturation 96%. REVIEW OF SYSTEMS: HEENT: Normal. RESPIRATORY: No shortness of breath, coughing, or wheezing. CARDIAC: No chest pain or palpitations. GASTROINTESTINAL: No nausea, vomiting, diarrhea or constipation. GENITOURINARY: No difficulty with urination. EXTREMITIES: No swelling or edema. MUSCULOSKELETAL: No muscle pain. NEUROLOGIC AND ENDOCRINE: Normal. MENTAL STATUS EXAMINATION: Reveals an alert female. Decreased psychomotor activity. Concentration and memory intact. Speech and language are normal. Orientation is full. Intelligence is average. Mood depressed. Affect somewhat constricted. Insight and judgment fair. Thought logical and goal directed. Denying suicidal ideation, intent or plan. ASSESSMENT AND PLAN: DIAGNOSES: AXIS I: 1. Major depressive disorder, severe, recurrent. 2. Panic disorder. AXIS II: Deferred. AXIS III: Refer to past medical history. TREATMENT PLAN: 1. This patient was admitted to the [facility] voluntarily and has shown improvement with good motivation for positive change. 2. She has been placed on medications, specifically Effexor 75 mg a day and Klonopin 0.5 mg twice a day. 3. She is participating in groups, therapies and activities. 4. The patient will be discharged likely tomorrow if she shows no further suicidal ideation or intent given the fact she is voluntary and prognosis is good. Jhonatan Niño MD DR: HELENA/francisco JOB# [id number]
--- NOTE | 2018-02-10 21:03 | DSH ---
DATE OF DISCHARGE: 02/09/2018 HOSPITAL COURSE: The patient is a very nice lady admitted due to a severe depressive disorder with depressed mood, disturbed sleep, appetite, energy and concentration. Positive anhedonia, positive suicidal ideation with intent on cutting her wrists. The patient has been on medications on an outpatient basis, Celexa, Cymbalta, Wellbutrin, all of which were not effective. Also, in individual therapy since July, no psychosis and no hai. The patient did very well in the hospital showing significant improvement in mood, elimination of vegetative symptoms, no anhedonia and complete elimination of all suicidal thought. Based on a very good response to therapy and medication including Effexor XR 75 mg a day and Klonopin 0.5 mg b.i.d. for a panic disorder, it was elected to discharge this patient to home with good prognosis. DISCHARGE DIAGNOSES: AXIS I: 1. Major depressive disorder, severe. 2. Panic disorder. AXIS II: Deferred. AXIS III: Refer to past medical history. TREATMENT PLAN: 1. The patient will be discharged to home. She will be following up with Dr. Niño in the [facility]: 2. The patient will remain on medications as outlined above, which include Effexor XR 75 mg a day and Klonopin 0.5 mg twice a day. 3. The patient's prognosis is good at this time. Jhonatan Niño MD DR: HELENA/francisco JOB# [id number]
== END 2018-02-09 15:05 | disposition home or self-care (01) | DRG 885 ==
LOC: ER 13:27 → EEVIPCON 15:14 → GP 15:14
PROVIDERS: ADMIT Psychiatry & Neurology Psychiatry; ATTEND Psychiatry & Neurology Psychiatry
DX: F33.9 Major depressive disorder, recurrent, unspecified (principal); R45.851 Suicidal ideations; K21.9 Gastro-esophageal reflux disease without esophagitis; I10 Essential (primary) hypertension; M79.7 Fibromyalgia; E78.5 Hyperlipidemia, unspecified; F17.210 Nicotine dependence, cigarettes, uncomplicated; F33.2 Major depressive disorder, recurrent severe without psychotic features; F41.0 Panic disorder [episodic paroxysmal anxiety]; G47.33 Obstructive sleep apnea (adult) (pediatric); Z90.49 Acquired absence of other specified parts of digestive tract; Z88.2 Allergy status to sulfonamides; Z88.5 Allergy status to narcotic agent; Z79.899 Other long term (current) drug therapy; Z91.5 Personal history of self-harm
CPT/HCPCS: 36415; 71045; 80053; 80061; 80307; 81000; 83036; 84443; 85025; 85610; 85730; 87086; 93005; 99285; G0481; Q0163; J8499